=== PATIENT | male | born 1985 | race Caucasian/White ===

== ENCOUNTER 2024-08-19 10:57 | Emergency (ER) | payer MEDICAID, SELFPAY ==
[2024-08-19 10:58] VITALS: BMI 31.9
[2024-08-19 11:24] VITALS: BP 152/96; PULSE 67; RESP 16; TEMP 37.1; O2SAT 99; BMI 32.0
--- NOTE | 2024-08-19 12:02 | EDNOTE_ITS ---
Lower Extremity Injury RME/HPI General Chief Complaint: Ankle/Foot Injury Stated Complaint: STEPPED ON NAIL Time Seen by Provider: 08/19/24 11:31 Arrival date/time: 08/19/24 10:57 RME / HPI RME / HPI Narrative: 39-year-old male presents to the ED with a complaint of stepping on a josh nail at home. He was wearing sandals at the time. He pulled the nail out immediately. His last tetanus is unknown. He has no allergies to medications. The injury occurred less than 2 hours ago. Related Data Previous Rx's ?Medication ?Instructions ?Recorded ciprofloxacin HCl 500 mg tablet 500 mg PO BID Soft tis brian puncture 08/19/24 (Cipro) wound #14 tabs meloxicam 15 mg tablet 15 mg PO QDAY #10 tabs 08/19 Allergies Allergy/AdvReac Type Severity Reaction Status Date / Time No Known Allergies Allergy Verified 08/19/24 11:00 Review of Systems Review of Systems Systems Reviewed: All systems reviewed, normal except as documented Past Medical History Past Medical History CARDIAC: Negative Congestive Heart Failure RESPIRATORY: Negative Chronic Obstructive Pulmonary Disease (COPD) GENITOURINARY: Negative Renal Disease ENDOCRINE: Negative Diabetes Mellitus Type 1 or Diabetes Mellitus Type 2 Social History SMOKING STATUS: Never smoker ED Exam Narrative Physical exam: Alert and oriented 39-year-old male, no acute distress. Lungs are clear, regular rate and rhythm. Left heel with puncture wound noted. Mild tenderness surrounding the puncture site. No erythema, warmth noted. Course Course Course Narrative: 39-year-old male presents to the ED with a complaint of stepping on a josh nail at home. He was wearing sandals at the time. He pulled the nail out immediately. His last tetanus is unknown. He has no allergies to medications. The injury occurred less than 2 hours ago. Exam reveals a puncture wound to the left heel. Blooding controlled. Mild tenderness noted to the left heel, otherwise normal exam. Tdap was updated after consent obtained. Left foot x-ray obtained which reveals: No obvious fracture, dislocation, or foreign body. Wound cleansed, antibiotic ointment and a dressing. Quality Measures none Orders Category Date Time Status TDap [Obtain Tdap Consent] X1 Care 08/19/24 12:03 Active Wound Care NOW Care 08/19/24 12:04 Active XR foot comp LT min 3V Stat Exams 08/19/24 12:03 Taken TET,DIP/PERT AC (Adult)-Tdap [Boostrix Adult (Tdap) Med 08/19/24 12:03 Discontinued Vacc] 0.5 ml IMI .ONCE ONE Vital Signs Vital signs: Vital Signs Temperature 98.7 F 08/19/24 11:24 Pulse Rate 67 08/19/24 11:24 Respiratory Rate 16 08/19/24 11:24 Blood Pressure 152/96 H 08/19/24 11:24 Pulse Oximetry (%) 99 08/19/24 11:24 Oxygen Delivery Method Room Air 08/19/24 11:24 Extremity Injury, Lower MDM Narrative MDM Narrative:: 39-year-old male presents to the ED with a complaint of stepping on a josh nail at home. He was wearing sandals at the time. He pulled the nail out immediately. His last tetanus is unknown. He has no allergies to medications. The injury occurred less than 2 hours ago. Exam reveals a puncture wound to the left heel. Blooding controlled. Mild tenderness noted to the left heel, otherwise normal exam. Tdap was updated after consent obtained. Left foot x-ray obtained which reveals: No obvious fracture, dislocation, or foreign body. Wound cleansed, antibiotic ointment and a dressing. Patient data External records reviewed:: None Clinical information provided by:: patient Social determinants that could affect healthcare access:: none Patient has the following chronic illnesses:: None How is presenting disease/condition affected by chronic disease/condition?: no chronic disease Evaluation data The following diagnostics were reviewed and interpreted by me:: radiology exam(s) Lab and/or radiology exams considered but not ordered:: N/A Interpretation Summary: Left foot x-ray obtained which reveals: No obvious fracture, dislocation, or foreign body. Medications / Prescriptions Medications or Prescriptions considered but not ordered:: N/A Medication administrations:: Medication Administration History Discontinued Medications Diphtheria/Tetanus/Acell Pertussis (Diphth,Pertuss(Acell),Tet Vac 0.5 Ml Syr- Adult) 0.5 ml IMi .ONCE ONE Stop: 08/19/24 12:04 Last Admin: 08/19/24 12:17 Dose: 0.5 ml Documented By: NADIA Tdap. Consultations Consultation(s) initiated? (list below): No Diagnosis Extremity Injury, Lower Differential Diagnosis: puncture wound of foot, fracture of toe and ankle fracture Most likely diagnosis given after review of the tests above:: Puncture wound of left heel. Admission Indicated Admission indicated?: not indicated Explain why admission is indicated or not indicated:: Patient is stable for discharge. Admission Request Was there a request for admission?: No Disposition Plan Disposition Plan: Discharge Discharge Attestation Discharge Attestation: The patient and all family members were given an opportunity to ask questions and understood the discharge instructions. Discharge instructions specifically effects, indications for sooner follow up or return to the emergency department, and the expected course of current diagnosis. Patient condition: Stable Discharge Plan Plan Patient Disposition: HOME (Self Care) Discharge Disposition comment: Stable and improved Prescriptions/Referrals Prescriptions/Med Rec: New ciprofloxacin HCl [Cipro] 500 mg tablet 500 mg PO BID Qty: 14 0RF meloxicam 15 mg tablet 15 mg PO QDAY Qty: 10 0RF Problem List Clinical Impression: Puncture wound of foot Patient/Caregiver Discharge Instructions Education Materials: ED Puncture Wound (Foot) Additional Instructions: Take the antibiotics as prescribed and complete the course even though you may be feeling better. Follow-up with your primary care physician in 24 to 48 hours. Return to the ED for any new or worsening symptoms. Print Language: Kazakh Stand Alone Forms: Gloria Award Info., Patient Portal Info Letter PA/LÁZARO Supervising Physician VICTOR MANUEL/LÁZARO Supervising Physician: Dr. Dominguez
--- NOTE | 2024-08-19 12:03 | XR_ITS ---
Examination: Foot, left, 3 views Technique: AP, oblique, lateral views foot, 3 views Date and time of exam: August 19, 2024 1208 hours INDICATIONS: Stepped on a nail today with foot pain FINDINGS: No acute fracture No dislocation Pedicle and body IMPRESSION: No opaque foreign body
[2024-08-19] MEDS: DIPHTH,PERTUSS(ACELL),TET VAC 0.5 ML SYR- ADULT IMi (12:17)
== END 2024-08-19 12:54 | disposition home or self-care (01) ==
LOC: SERX 12:44
PROVIDERS: Emergency Provider Emergency Medicine; PCP Family Medicine
DX: S91.332A Puncture wound without foreign body, left foot, initial encounter (principal); W45.0XXA Nail entering through skin, initial encounter; Y92.009 Unspecified place in unspecified non-institutional (private) residence as the place of occurrence of the external cause; Z23 Encounter for immunization
CPT/HCPCS: 73630; 90471; 90715; 99283